=== PATIENT | male | born 1990 | race Caucasian/White ===

== ENCOUNTER 2020-01-06 15:11 | Emergency (ER) | payer BC ==
[2020-01-06 15:56] LABS: Basophils # (A) 0.1 k/uL (0-0.2); Basophils % (A) 1 %; Eosinophils # (A) 0.1 k/uL (0-0.7); Eosinophils % (A) 1 %; HCT 49.4 % (39.0-53.0); Lymphocytes # (A) 2.3 k/uL (1.0-4.8); Lymphocytes % (A) 20 %; MCH 29.1 pg (25.0-35.0); MCHC 34.3 g/dL (31.0-37.0); MCV 84.6 fL (80.0-100.0); Mean Platelet Volume 7.4; Monocytes # (A) 0.8 k/uL (0-1.0); Monocytes % (A) 7 %; Neutrophils # (A) 7.7 k/uL (1.3-7.7); Neutrophils % (A) 68 %; Platelet Count 295 k/uL (150-450); RBC 5.84 m/uL (4.30-5.90); RDW 13.4 % (11.5-15.5); WBC 11.2 k/uL (3.8-10.6)
[2020-01-06 16:06] LABS: ALT 97 U/L (4-49); AST 59 U/L (17-59); African American GFR (CKD) >90 (>60 ml/min/1.73 sqM); Albumin 5.1 g/dL (3.5-5.0); Alkaline Phosphatase 90 U/L (38-126); Anion Gap 13 mmol/L; Blood Urea Nitrogen 24 mg/dL (9-20); Calcium 9.8 mg/dL (8.4-10.2); Carbon Dioxide 22 mmol/L (22-30); Chloride 105 mmol/L (98-107); Glucose 95 mg/dL (74-99); Non-African American GFR(CKD) >90 (>60 ml/min/1.73 sqM); Potassium 4.6 mmol/L (3.5-5.1); Sodium 140 mmol/L (137-145); Total Bilirubin 0.6 mg/dL (0.2-1.3); Total Protein 8.7 g/dL (6.3-8.2)
[2020-01-06 16:08] LABS: Appearance,Urine Clear (Clear); Bilirubin,Urine Negative (Negative); Blood,Urine Negative (Negative); Color,Urine Yellow; Glucose,Urine (UA) Negative (Negative); Ketones,Urine Negative (Negative); Leukocyte Esterase,Urine Trace (Negative); Mucus,Urine Rare /hpf; Nitrite,Urine Negative (Negative); Protein,Urine Trace (Negative); RBC,Urine 1 /hpf (0-5); Specific Gravity,Urine 1.032 (1.001-1.035); Urobilinogen,Urine <2.0 mg/dL (<2.0); WBC,Urine 2 /hpf (0-5)
--- NOTE | 2020-01-06 16:29 | CT ---
EXAMINATION TYPE: CT abdomen pelvis w con DATE OF EXAM: 01/06/2020 COMPARISON: Non-. HISTORY: Right sided mid Abdominal pain without injury. Possible hernia or rectus sheath hematoma. CT DLP: 2786.8 mGycm, Automated Exposure Control for Dose Reduction was Utilized. CONTRAST: CT scan of the abdomen and pelvis is performed without oral but with IV Contrast, patient injected wi th 100 mL of Isovue 300. FINDINGS: LUNG BASES: No significant abnormality is appreciated. LIVER/GB: Liver is markedly hypodense consistent with diffuse fatty infiltration. Liver mildly enlarg ed with prominent right hepatic lobe. PANCREAS: No significant abnormality is seen. SPLEEN: No significant abnormality is seen. ADRENALS: No significant abnormality is seen. KIDNEYS: Symmetric cortical medullary uptake and excretion without hydronephrosis seen bilaterally. BOWEL: Suboptimal evaluation of bowel without enteric contrast. No suspicious small or large bowel di latation. Appendix within normal limits from posterior aspect at base of cecum in the right lower ronel drant. PROSTATE/SEMINAL VESICLES: Normal in size. Occasional calcified phleboliths bilaterally. LYMPH NODES: No greater than 1cm abdominal or pelvic lymph nodes are appreciated. OSSEOUS STRUCTURES: No significant abnormality is seen. OTHER: Tiny fat-containing left inguinal hernia. Moderate size left periumbilical hernia containing f at on axial image 65 just left and inferior to the umbilicus. Rectus sheath symmetric and felt within normal limits. IMPRESSION: Moderate-sized fat-containing periUmbilical hernia. No acute findings identified.
--- NOTE | 2020-01-06 16:50 | ED ---
Abdominal Pain HPI - General Chief Complaint: Abdominal Pain Stated Complaint: right side abdominal pain Time Seen by Provider: 01/06/20 15:27 Source: patient Mode of arrival: ambulatory Limitations: no limitations - History of Present Illness Initial Comments: 29-year-old male no severe past medical history presenting for right mid abdominal pain since she was on the toilet when he felt a sudden pop in his abdomen. He patient states it feels like it's when he strained a muscle as arm or leg in the past but however in his abdomen. Patient denies any use of anticoagulation therapy. Patient states he has a known umbilical hernia however is not in this area. Patient denies any constipation denies any melena or hematochezia he denies any nausea vomiting fevers patient denies any symptoms prior to the sudden onset. Patient has a chest pressure or shortness of breath patient denies a ripping tearing back pain. Patient has no other concerns he states the pain was initially intense however he states is tolerable now he states there is no significant pain. Patient denies dysuria urgency frequency hematuria or flank pain. Remaining review of systems is negative. - Related Data Allergies Allergy/AdvReac Type Severity Reaction Status Date / Time No Known Allergies Allergy Verified 01/06/20 15:18 Review of Systems ROS Statement: Those systems with pertinent positive or pertinent negative responses have been documented in the HPI. ROS Other: All systems not noted in ROS Statement are negative. Past Medical History Past Medical History: No Reported History History of Any Multi-Drug Resistant Organisms: None Reported Past Surgical History: No Surgical Hx Reported Past Psychological History: No Psychological Hx Reported Smoking Status: Never smoker Past Alcohol Use History: None Reported Past Drug Use History: None Reported General Exam - General Exam Comments Initial Comments: General: The patient is awake and alert, in no distress Eye: +3 mm pupils are equal, round and reactive to light, extra-ocular movements are intact. No nystagmus. There is normal conjunctiva bilaterally. No signs of icterus. Ears, nose, mouth and throat: There are moist mucous membranes and no oral lesions. Neck: The neck is supple, there is no tenderness or JVD. Cardiovascular: There is a regular rate and rhythm. No murmur, rub or gallop is appreciated. Respiratory: Lungs are clear to auscultation, respirations are non-labored, breath sounds are equal. No wheezes, stridor, rales, or rhonchi. Gastrointestinal: Soft, non-distended, abdomen is tender in the mid right side, no obvious hernia, some tension noted, increases with rotation of the abdomen. no tenderness of rLQ or McBurneys point. Remaining abdomen in RUQ, LUQ, epigastric nontender. Umbilical hernia reducible. Remaining abdomen is nontender and without masses or organomegaly noted. There is no rebound or guarding present. Musculoskeletal: Normal ROM, no tenderness. Strength 5/5. Sensation intact. Radial pulses equal bilaterally 2+. Neurological: A&O x 3. CN II-XII intact grossly, There are no obvious motor or sensory deficits. Coordination appears grossly intact. Speech is normal. Skin: Skin is warm and dry and no rashes or lesions are noted. Psychiatric: Cooperative, appropriate mood & affect, normal judgment. Limitations: no limitations Course Vital Signs 01/06/20 01/06/20 15:16 16:53 Temperature 97.5 F L 98.2 F Pulse Rate 108 H 90 Respiratory 19 18 Rate Blood Pressure 166/98 144/91 O2 Sat by Pulse 99 96 Oximetry Medical Decision Making - Medical Decision Making 29-year-old male presenting today for chief complaint of right-sided abdominal pain occurred suddenly was patient is having a normal formed BM, some straining. No evidence of right sided hernia. No appendicits signs. No rectus sheath hematoma. Patient states pain is not severe. Laboratory studies stable. Patient does not appears to have acute abdomen. Discussed results, patient at this time feels it may be a skilled skeletal as I feel this is included in my differential diagnosis. I discussed symptomatically treatment in the importance of strict return parameters for worsening symptoms patient verbalized understanding and patient was discharged appearing well after discussing case with Dr. Sales. - Lab Data Result diagrams: 01/06/20 15:46 01/06/20 15:46 Lab Results 01/06/20 01/06/20 01/06/20 Range/Units 15:19 15:46 15:46 WBC 11.2 H (3.8-10.6) k/uL RBC 5.84 (4.30-5.90) m/uL Hgb 17.0 (13.0-17.5) gm/dL Hct 49.4 (39.0-53.0) % MCV 84.6 (80.0-100.0) fL MCH 29.1 (25.0-35.0) pg MCHC 34.3 (31.0-37.0) g/dL RDW 13.4 (11.5-15.5) % Plt Count 295 (150-450) k/uL Neutrophils % 68 % Lymphocytes % 20 % Monocytes % 7 % Eosinophils % 1 % Basophils % 1 % Neutrophils # 7.7 (1.3-7.7) k/uL Lymphocytes # 2.3 (1.0-4.8) k/uL Monocytes # 0.8 (0-1.0) k/uL Eosinophils # 0.1 (0-0.7) k/uL Basophils # 0.1 (0-0.2) k/uL Sodium 140 (137-145) mmol/L Potassium 4.6 (3.5-5.1) mmol/L Chloride 105 (98-107) mmol/L Carbon Dioxide 22 (22-30) mmol/L Anion Gap 13 mmol/L BUN 24 H (9-20) mg/dL Creatinine 1.06 (0.66-1.25) mg/dL Est GFR (CKD-EPI)AfAm >90 (>60 ml/min/1.73 sqM) Est GFR (CKD-EPI)NonAf >90 (>60 ml/min/1.73 sqM) Glucose 95 (74-99) mg/dL Calcium 9.8 (8.4-10.2) mg/dL Total Bilirubin 0.6 (0.2-1.3) mg/dL AST 59 (17-59) U/L ALT 97 H (4-49) U/L Alkaline Phosphatase 90 (38-126) U/L Total Protein 8.7 H (6.3-8.2) g/dL Albumin 5.1 H (3.5-5.0) g/dL Lipase 177 (23-300) U/L Urine Color Yellow Urine Appearance Clear (Clear) Urine pH 6.0 (5.0-8.0) Ur Specific [place] 1.032 (1.001-1.035) Urine Protein Trace H (Negative) Urine Glucose (UA) Negative (Negative) Urine Ketones Negative (Negative) Urine Blood Negative (Negative) Urine Nitrite Negative (Negative) Urine Bilirubin Negative (Negative) Urine Urobilinogen <2.0 (<2.0) mg/dL Ur Leukocyte Esterase Trace H (Negative) Urine RBC 1 (0-5) /hpf Urine WBC 2 (0-5) /hpf Urine Mucus Rare H (None) /hpf Disposition Clinical Impression: Right sided abdominal pain, Abdominal wall strain, Periumbilical hernia Disposition: HOME SELF-CARE Condition: Good Instructions (If sedation given, give patient instructions): Abdominal Pain (ED) Additional Instructions: Please use medication as discussed. Please follow-up with family doctor in the next 2 days. Please return to emergency room if the symptoms increase or worsen or for any other concerns. Is patient prescribed a controlled substance at d/c from ED?: No Referrals: Sorin Meza MD [Primary Care Provider] - 1-2 days Time of Disposition: 16:50
[2020-01-06 16:55] VITALS: BP 144/91; PULSE 90; RESP 18; TEMP 98.2
== END 2020-01-06 17:05 | disposition home or self-care (01) ==
LOC: EC 15:11
DX: S39.011A Strain of muscle, fascia and tendon of abdomen, initial encounter (principal); K42.9 Umbilical hernia without obstruction or gangrene; X58.XXXA Exposure to other specified factors, initial encounter
CPT/HCPCS: 36415; 80053; 83690; 85025; 81001; 74177; 99284; Q9967

== ENCOUNTER 2021-10-16 16:08 | Emergency (ER) | payer BC ==
[2021-10-16] MEDS ORDERED: SODIUM CHLORIDE 0.9% 1,000 ML IV STA ×2 (16:35→16:58)
[2021-10-16 16:44] LABS: Basophils % (A) 0 %; Eosinophils % (A) 0 %; HGB 14.9 gm/dL (13.0-17.5); Lymphocytes # (A) 1.1 k/uL (1.0-4.8); Lymphocytes % (A) 19 %; MCH 29.1 pg (25.0-35.0); MCHC 34.7 g/dL (31.0-37.0); MCV 83.9 fL (80.0-100.0); Mean Platelet Volume 7.6; Monocytes # (A) 0.3 k/uL (0-1.0); Monocytes % (A) 5 %; Neutrophils # (A) 4.2 k/uL (1.3-7.7); Neutrophils % (A) 74 %; Platelet Count 227 k/uL (150-450); RBC 5.13 m/uL (4.30-5.90); WBC 5.7 k/uL (3.8-10.6)
[2021-10-16 16:55] LABS: Potassium 4.1 mmol/L (3.5-5.1); Sodium 137 mmol/L (137-145)
[2021-10-16 16:56] LABS: ALT 52 U/L (4-49); AST 55 U/L (17-59); African American GFR (CKD) >90 (>60 ml/min/1.73 sqM); Alkaline Phosphatase 66 U/L (38-126); Anion Gap 13 mmol/L; Blood Urea Nitrogen 12 mg/dL (9-20); Calcium 8.4 mg/dL (8.4-10.2); Carbon Dioxide 23 mmol/L (22-30); Chloride 101 mmol/L (98-107); Glucose 133 mg/dL (74-99); Non-African American GFR(CKD) >90 (>60 ml/min/1.73 sqM); Total Bilirubin 0.7 mg/dL (0.2-1.3); Total Protein 7.4 g/dL (6.3-8.2)
[2021-10-16] MEDS ORDERED: ALBUTEROL HFA INHALER INHALATION STA (16:58)
[2021-10-16] MEDS ORDERED: KETOROLAC 15 MG/ML 1 ML VIAL IVP STA (16:59)
--- NOTE | 2021-10-16 17:01 | ED ---
General Adult HPI - General Chief complaint: Shortness of Breath Stated complaint: covid symptoms Time Seen by Provider: 10/16/21 16:50 Source: patient, RN notes reviewed, old records reviewed Mode of arrival: ambulatory Limitations: no limitations - History of Present Illness Initial comments: 31-year-old male patient, alert and oriented 4, presents to the emergency room with a history of shortness of breath, fever and cough for 2 days. He has not been vaccinated against coronavirus. He denies any medical history. He states that the pain is worse with a cough and between his shoulder blades. He states it is 7 out 10. -: days(s) (2) Location: chest Radiation: back (Between shoulder blades) Severity scale (1-10): 7 Quality: sharp Consistency: intermittent Worsens with: other (Cough) Associated Symptoms: cough, fever/chills, shortness of breath Treatments Prior to Arrival: none - Related Data Home Medications Medication Instructions Recorded Confirmed icosapent ethyL [Icosapent Ethyl] 2 gm PO PC-BID 10/16/21 10/16/21 Previous Rx's Medication Instructions Recorded Albuterol Inhaler [Ventolin Hfa 2 puff INHALATION Q4H PRN #8 gm 10/16/21 Inhaler] Allergies Allergy/AdvReac Type Severity Reaction Status Date / Time No Known Allergies Allergy Verified 10/16/21 20:04 Review of Systems ROS Statement: Those systems with pertinent positive or pertinent negative responses have been documented in the HPI. ROS Other: All systems not noted in ROS Statement are negative. Past Medical History Past Medical History: No Reported History History of Any Multi-Drug Resistant Organisms: None Reported Past Surgical History: No Surgical Hx Reported Additional Past Surgical History / Comment(s): hernia umbilical x 2 Past Psychological History: No Psychological Hx Reported Smoking Status: Never smoker Past Alcohol Use History: None Reported Past Drug Use History: None Reported General Exam Limitations: no limitations General appearance: alert, in distress (Dyspneic with exertion) Head exam: Present: atraumatic, normocephalic, normal inspection Eye exam: Present: normal appearance, EOMI. Absent: scleral icterus, conjunctival injection, periorbital swelling ENT exam: Present: normal exam, normal oropharynx, mucous membranes dry Neck exam: Present: normal inspection, full ROM. Absent: tenderness, meningismus, lymphadenopathy, thyromegaly Respiratory exam: Present: decreased breath sounds (Diminished throughout. poor inspiratory effort). Absent: respiratory distress, wheezes, rales, rhonchi, stridor, chest wall tenderness, accessory muscle use Cardiovascular Exam: Present: tachycardia GI/Abdominal exam: Present: soft, normal bowel sounds. Absent: distended, tenderness, guarding, rebound, rigid Extremities exam: Present: normal inspection, full ROM, normal capillary refill. Absent: tenderness, pedal edema, joint swelling, calf tenderness Back exam: Present: normal inspection, full ROM. Absent: tenderness, CVA ten derness (R), CVA tenderness (L), rash noted Neurological exam: Present: alert, oriented X3 Psychiatric exam: Present: normal affect, normal mood Skin exam: Present: warm, intact, normal color, diaphoretic. Absent: cyanosis Course Vital Signs 10/16/21 10/16/21 10/16/21 16:11 16:14 17:00 Temperature 101.0 F H Pulse Rate 116 H 114 H 110 H Respiratory 22 18 16 Rate Blood Pressure 134/94 134/94 133/92 O2 Sat by Pulse 90 L 95 98 Oximetry 10/16/21 10/16/21 20:23 20:25 Temperature 98.2 F Pulse Rate 100 Respiratory 20 Rate Blood Pressure 151/80 O2 Sat by Pulse 94 L Oximetry EKG Findings - EKG Results: EKG: sinus rhythm (Ventricular rate of 112, UT interval 0.146, QRS 0.84, QTC 0.469) EKG shows: tachycardia Medical Decision Making - Medical Decision Making 31-year-old male patient presents to the emergency room with shortness of breath, fever and cough for 2 days. He has not been vaccinated against coronavirus. He denies any medical history. He is covid positive. He states he feels much better after the breathing treatment. Oxygen saturation is 98% on room air. He tolerated an antibody infusion without any difficulty. He'll be discharged home to follow up with his primary care doctor as needed. Return to the emergency room with any new or worsening symptoms. Self quarantine for 10 days of symptom onset and 24 hours without a fever. He was also prescribed an albuterol inhaler as needed. Case discussed with Dr. finney. - Lab Data Result diagrams: 10/16/21 16:30 10/16/21 16:30 Lab Results 10/16/21 10/16/21 10/16/21 Range/Units 16:30 16:30 16:30 WBC 5.7 (3.8-10.6) k/uL RBC 5.13 (4.30-5.90) m/uL Hgb 14.9 (13.0-17.5) gm/dL Hct 43.0 (39.0-53.0) % MCV 83.9 (80.0-100.0) fL MCH 29.1 (25.0-35.0) pg MCHC 34.7 (31.0-37.0) g/dL RDW 14.0 (11.5-15.5) % Plt Count 227 (150-450) k/uL MPV 7.6 Neutrophils % 74 % Lymphocytes % 19 % Monocytes % 5 % Eosinophils % 0 % Basophils % 0 % Neutrophils # 4.2 (1.3-7.7) k/uL Lymphocytes # 1.1 (1.0-4.8) k/uL Monocytes # 0.3 (0-1.0) k/uL Eosinophils # 0.0 (0-0.7) k/uL Basophils # 0.0 (0-0.2) k/uL PT (9.0-12.0) sec INR (<1.2) APTT (22.0-30.0) sec D-Dimer (<0.60) mg/L FEU Sodium 137 (137-145) mmol/L Potassium 4.1 (3.5-5.1) mmol/L Chloride 101 (98-107) mmol/L Carbon Dioxide 23 (22-30) mmol/L Anion Gap 13 mmol/L BUN 12 (9-20) mg/dL Creatinine 1.04 (0.66-1.25) mg/dL Est GFR (CKD-EPI)AfAm >90 (>60 ml/min/1.73 sqM) Est GFR (CKD-EPI)NonAf >90 (>60 ml/min/1.73 sqM) Glucose 133 H (74-99) mg/dL Calcium 8.4 (8.4-10.2) mg/dL Magnesium (1.6-2.3) mg/dL Total Bilirubin 0.7 (0.2-1.3) mg/dL AST 55 (17-59) U/L ALT 52 H (4-49) U/L Alkaline Phosphatase 66 (38-126) U/L Troponin I (0.000-0.034) ng/mL Total Protein 7.4 (6.3-8.2) g/dL Albumin 4.0 (3.5-5.0) g/dL Coronavirus (PCR) Detected A (Not Detectd) 10/16/21 10/16/21 10/16/21 Range/Units 17:00 17:00 17:00 WBC (3.8-10.6) k/uL RBC (4.30-5.90) m/uL Hgb (13.0-17.5) gm/dL Hct (39.0-53.0) % MCV (80.0-100.0) fL MCH (25.0-35.0) pg MCHC (31.0-37.0) g/dL RDW (11.5-15.5) % Plt Count (150-450) k/uL MPV Neutrophils % % Lymphocytes % % Monocytes % % Eosinophils % % Basophils % % Neutrophils # (1.3-7.7) k/uL Lymphocytes # (1.0-4.8) k/uL Monocytes # (0-1.0) k/uL Eosinophils # (0-0.7) k/uL Basophils # (0-0.2) k/uL PT 10.9 (9.0-12.0) sec INR 1.0 (<1.2) APTT 26.8 (22.0-30.0) sec D-Dimer 1.13 H (<0.60) mg/L FEU Sodium (137-145) mmol/L Potassium (3.5-5.1) mmol/L Chloride (98-107) mmol/L Carbon Dioxide (22-30) mmol/L Anion Gap mmol/L BUN (9-20) mg/dL Creatinine (0.66-1.25) mg/dL Est GFR (CKD-EPI)AfAm (>60 ml/min/1.73 sqM) Est GFR (CKD-EPI)NonAf (>60 ml/min/1.73 sqM) Glucose (74-99) mg/dL Calcium (8.4-10.2) mg/dL Magnesium 1.9 (1.6-2.3) mg/dL Total Bilirubin (0.2-1.3) mg/dL AST (17-59) U/L ALT (4-49) U/L Alkaline Phosphatase (38-126) U/L Troponin I <0.012 (0.000-0.034) ng/mL Total Protein (6.3-8.2) g/dL Albumin (3.5-5.0) g/dL Coronavirus (PCR) (Not Detectd) Disposition Clinical Impression: COVID-19 Disposition: HOME SELF-CARE Condition: Good Instructions (If sedation given, give patient instructions): Coronavirus Disease 2019 (COVID-19) Additional Instructions: Use albuterol inhaler every 4 hours, 2 puffs as needed for difficulty breathing. Continue Tylenol and/or Motrin for any fevers or body aches. Take vitamin C, vitamin D and zinc and increase your fluid intake. Self quarantine for 10 days from symptom onset and 24 hours without fever. Return to the emergency room with any new or worsening symptoms. Prescriptions: Albuterol Inhaler [Ventolin Hfa Inhaler] 2 puff INHALATION Q4H PRN #8 gm PRN Reason: Dyspnea Is patient prescribed a controlled substance at d/c from ED?: No Referrals: Sorin Meza MD [Primary Care Provider] - 1-2 days Time of Disposition: 21:04
[2021-10-16] MEDS ORDERED: ACETAMINOPHEN TAB 325 MG TAB PO STA (17:03)
[2021-10-16 17:19] LABS: Partial Thromboplastin Time 26.8 sec (22.0-30.0); Prothrombin Time 10.9 sec (9.0-12.0)
--- NOTE | 2021-10-16 18:34 | CT ---
EXAMINATION TYPE: CT angio chest DATE OF EXAM: 10/16/2021 6:17 PM COMPARISON: None available HISTORY: Shortness of breath, covid. CT DLP: 921.7 mGycm Automated exposure control for dose reduction was used. CONTRAST: CTA scan of the thorax is performed with IV Contrast, patient injected with 100ml mL of Isovue 370, p ulmonary embolism protocol. MIP images are created and reviewed. FINDINGS: LUNGS: There are bilateral diffuse moderate patchy ground glass opacities. There is no pleural effusi on or pneumothorax seen. The tracheobronchial tree is patent. MEDIASTINUM: There is satisfactory enhancement of the pulmonary artery and its branches, there is no CT evidence for pulmonary embolism. There are scattered multiple borderline to mildly enlarged media stinal lymph nodes. No pericardial effusion is seen. OTHER: Diffuse hepatic steatosis. No additional significant abnormality is seen. IMPRESSION: FINDINGS COMPATIBLE WITH ATYPICAL PNEUMONIA INCLUDING COVID. NO ACUTE PE.
[2021-10-16] MEDS ORDERED: BAMLANIVIMAB (EUA) 700 MG, ETESEVIMAB (EUA) 1,400 MG in SODIUM CHLORIDE 0.9% 50 ML IVPB ONE (19:15)
[2021-10-16] MEDS ORDERED: SODIUM CHLORIDE 0.9% 50 ML IVPB ONE (19:15)
[2021-10-16 20:25] VITALS: RESP 20
[2021-10-16 22:04] VITALS: BP 147/78; PULSE 62; TEMP 98.4
== END 2021-10-16 22:03 | disposition home or self-care (01) ==
LOC: EC 16:08
DX: U07.1 COVID-19 (principal)
CPT/HCPCS: 36415; 94640; 93005; 85379; 80053; 83735; 84484; 85025; 85610; 85730; 87635; 71275; 99285; 96374; 96361; J1885; Q9967; J3490

== ENCOUNTER 2022-12-02 18:15 | Emergency (ER) | payer OTHER, BC ==
[2022-12-02 18:23] VITALS: TEMP 98.1
[2022-12-02] MEDS ORDERED: fentaNYL (PF) 50 MCG/ML 2 ML AMP IVP STA (18:37)
[2022-12-02] MEDS ORDERED: SODIUM CHLORIDE 0.9% 500 ML 500 ML IV STA (18:37)
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
[2022-12-02 19:27] LABS: Basophils # (A) 0.1 k/uL (0-0.2); Basophils % (A) 1 %; Eosinophils # (A) 0.1 k/uL (0-0.7); Eosinophils % (A) 1 %; HGB 15.3 gm/dL (13.0-17.5); Lymphocytes % (A) 26 %; MCH 28.4 pg (25.0-35.0); MCHC 34.7 g/dL (31.0-37.0); MCV 81.8 fL (80.0-100.0); Monocytes # (A) 0.8 k/uL (0-1.0); Monocytes % (A) 7 %; Neutrophils # (A) 7.1 k/uL (1.3-7.7); Neutrophils % (A) 63 %; Platelet Count 278 k/uL (150-450); RBC 5.37 m/uL (4.30-5.90); RDW 13.4 % (11.5-15.5); WBC 11.3 k/uL (3.8-10.6)
[2022-12-02 19:33] LABS: Partial Thromboplastin Time 26.2 sec (22.0-30.0); Prothrombin Time 10.3 sec (9.0-12.0)
[2022-12-02 19:37] LABS: Albumin 4.5 g/dL (3.5-5.0); Calcium 9.1 mg/dL (8.4-10.2); Potassium 4.3 mmol/L (3.5-5.1); Total Bilirubin 0.7 mg/dL (0.2-1.3); Total Protein 7.6 g/dL (6.3-8.2)
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
[2022-12-02 21:15] VITALS: BP 175/106; PULSE 75; RESP 16
== END 2022-12-02 21:15 | disposition home or self-care (01) ==
LOC: EC 18:15
DX: S30.1XXA Contusion of abdominal wall, initial encounter (principal); V47.5XXA Car driver injured in collision with fixed or stationary object in traffic accident, initial encounter; Y92.410 Unspecified street and highway as the place of occurrence of the external cause
CPT/HCPCS: 36415; 93005; 80053; 84484; 85025; 85610; 85730; 71260; 74177; 99284; 96374; J3010; Q9967

== ENCOUNTER 2023-09-26 13:23 | Inpatient (IN) | payer BC ==
[2023-09-26] MEDS ORDERED: ACETAMINOPHEN TAB 325 MG TAB PO STA (14:12)
[2023-09-26] MEDS ORDERED: IBUPROFEN 800 MG TAB PO STA (14:12)
[2023-09-26] MEDS ORDERED: methylPREDNISolone SOD SUCCI 125 MG/2 ML VIAL IV STA (14:13)
[2023-09-26] MEDS ORDERED: MORPHINE SULFATE 4 MG/ML SYRINGE IM STA (14:39)
[2023-09-26 14:54] LABS: Basophils % (A) 0 %; Eosinophils # (A) 0.1 k/uL (0-0.7); Eosinophils % (A) 1 %; HCT 44.5 % (39.0-53.0); HGB 16.1 gm/dL (13.0-17.5); Lymphocytes % (A) 5 %; MCH 29.9 pg (25.0-35.0); MCHC 36.2 g/dL (31.0-37.0); MCV 82.5 fL (80.0-100.0); Mean Platelet Volume 7.3; Monocytes % (A) 4 %; Neutrophils # (A) 19.7 k/uL (1.3-7.7); Neutrophils % (A) 90 %; Platelet Count 247 k/uL (150-450); RBC 5.39 m/uL (4.30-5.90); RDW 13.4 % (11.5-15.5)
[2023-09-26 15:05] LABS: ALT 61 U/L (4-49); AST 42 U/L (17-59); African American GFR (CKD) >90 (>60 ml/min/1.73 sqM); Albumin 4.9 g/dL (3.5-5.0); Alkaline Phosphatase 78 U/L (38-126); Anion Gap 17 mmol/L; Blood Urea Nitrogen 16 mg/dL (9-20); Calcium 9.5 mg/dL (8.4-10.2); Carbon Dioxide 19 mmol/L (22-30); Chloride 102 mmol/L (98-107); Glucose 141 mg/dL (74-99); Non-African American GFR(CKD) >90 (>60 ml/min/1.73 sqM); Potassium 3.8 mmol/L (3.5-5.1); Sodium 138 mmol/L (137-145); Total Bilirubin 0.8 mg/dL (0.2-1.3); Total Protein 8.1 g/dL (6.3-8.2)
--- NOTE | 2023-09-26 15:12 | XR ---
EXAMINATION TYPE: XR Hip Bilateral Complete DATE OF EXAM: 09/26/2023 CLINICAL HISTORY: pain TECHNIQUE: AP and frogleg views of the bilateral hips are obtained. COMPARISON: None. FINDINGS: There is no acute fracture/dislocation evident. The joint space appears within normal li mits. The overlying soft tissue appears unremarkable. IMPRESSION: 1. There is no acute fracture or dislocation. ICD 10 NO FRACTURE, INITIAL EVALUATION
--- NOTE | 2023-09-26 15:25 | ED ---
General Adult HPI - General Source: patient, RN notes reviewed Mode of arrival: ambulatory Limitations: no limitations <Tomeka Hernandez - Last Filed: 09/26/23 17:07> <Angelo Lin - Last Filed: 09/26/23 18:19> - General Chief complaint: Extremity Problem,Nontraumatic Stated complaint: R Leg/Foot pain Time Seen by Provider: 09/26/23 14:01 - History of Present Illness Initial comments: 33-year-old male with no significant past medical history presents the emergency department with a chief complaint of right leg pain. Patient reports right leg pain that started this up and radiates all the way down. He reports sudden onset. The pain as sharp and constant. This is not worse with movement. Febrile. Patient reports that he had cellulitis in the past however this feels different. Patient denies any trauma or injury. Denies recent travel. (Tomeka Hernandez) - Related Data Home Medications Medication Instructions Recorded Confirmed No Known Home Medications 09/26/23 09/26/23 Allergies Allergy/AdvReac Type Severity Reaction Status Date / Time No Known Allergies Allergy Verified 09/26/23 17:17 Review of Systems ROS Other: All systems not noted in ROS Statement are negative. <Tomeka Hernandez - Last Filed: 09/26/23 17:07> ROS Other: All systems not noted in ROS Statement are negative. <Angelo Lin - Last Filed: 09/26/23 18:19> ROS Statement: Those systems with pertinent positive or pertinent negative responses have been documented in the HPI. Past Medical History Past Medical History: No Reported History History of Any Multi-Drug Resistant Organisms: None Reported Past Surgical History: No Surgical Hx Reported Additional Past Surgical History / Comment(s): hernia umbilical x 2 Past Psychological History: No Psychological Hx Reported Smoking Status: Never smoker Past Alcohol Use History: None Reported Past Drug Use History: None Reported <Tomeka Hernandez - Last Filed: 09/26/23 17:07> General Exam Limitations: no limitations <Tomeka Hernandez - Last Filed: 09/26/23 17:07> - General Exam Comments Initial Comments: General: Alert, in no acute distress Head: atraumatic normocephalic. Eyes PERRL, EOMI intact, mucous membranes moist Respiratory: Lungs clear to auscultation bilaterally Cardiovascular: Heart rate tachycardic Abdominal: Soft without guarding or rebound Extremities: Normal inspection with full range of motion and normal capillary refill, 2+ pieces PT pulses bilaterally. Small area of erythema that is warm to distal tibia-fibula area Neuroogic: alert and oriented 3, CN II-XII intact, able to ambulate with steady gait Skin: warm dry and intact with normal color (Tomeka Hernandez) Course <Tomeka Hernandez - Last Filed: 09/26/23 17:07> Vital Signs 09/26/23 09/26/23 09/26/23 13:26 14:48 17:03 Temperature 100.4 F H 98.1 F Pulse Rate 119 H 125 H 111 H Respiratory 20 16 16 Rate Blood Pressure 190/90 118/95 180/113 O2 Sat by Pulse 100 99 97 Oximetry - Reevaluation(s) Reevaluation #1: 09/26/23 15:23 , at bedside to discuss plan of care (Tomeka Hernandez) Reevaluation #2: 09/26/23 17:[address] Baig was in the emergency department agrees and accepts the patient for further admission (Tomeka Hernandez) Medical Decision Making - Lab Data Result diagrams: 09/26/23 14:18 09/26/23 14:18 <Tomeka Hernandez - Last Filed: 09/26/23 17:07> - Lab Data Result diagrams: 09/26/23 14:18 09/26/23 14:18 <Angelo Lin - Last Filed: 09/26/23 18:19> - Medical Decision Making Was pt. sent in by a medical professional or institution (, PA, BRINELL TESTER, urgent care, hospital, or skilled nursing...) When possible be specific @ -[No] Did you speak to anyone other than the patient for history (EMS, parent, family, police, friend...)? What history was obtained from this source @ -[No] Did you review nursing and triage notes (agree or disagree)? Why? @ -[I reviewed and agree with nursing and triage notes] Were old charts reviewed (outside hosp., previous admission, EMS record, old EKG, old radiological studies, urgent care reports/EKG's, skilled nursing records)? Report findings @ -[No old charts were reviewed] Differential Diagnosis (chest pain, altered mental status, abdominal pain women, abdominal pain men, vaginal bleeding, weakness, fever, dyspnea, syncope, headache, dizziness, GI bleed, back pain, seizure, CVA, palpatations, mental health, musculoskeletal)? @ -[not applicable] EKG interpreted by me (3pts min.). @ -[As above] X-rays interpreted by me (1pt min.). @ -[None done] CT interpreted by me (1pt min.). @ -yes U/S interpreted by me (1pt. min.). @ -Yes What testing was considered but not performed or refused? (CT, X-rays, U/S, labs)? Why? @ -[None] What meds were considered but not given or refused? Why? @ -[None] Did you discuss the management of the patient with other professionals (professionals i.e. , PA, BRINELL TESTER, lab, RT, psych nurse, social service worker, job press feeder, teacher, wildlife conservation officer, field nurse case manager)? Give summary @ -[No] Was smoking cessation discussed for >3mins.? @ -[No] Was critical care preformed (if so, how long)? @ -[No] Were there social determinants of health that impacted care today? How? (Homelessness, low income, unemployed, alcoholism, drug addiction, transportation, low edu. Level, literacy, decrease access to med. care, [facility], rehab)? @ -[No] Was there de-escalation of care discussed even if they declined (Discuss DNR or withdrawal of care, Hospice)? DNR status @ -[No] What co-morbidities impacted this encounter? (DM, HTN, Smoking, COPD, CAD, Cancer, CVA, ARF, Chemo, Hep., AIDS, mental health diagnosis, sleep apnea, morbid obesity)? @ -[None] Was patient admitted / discharged? Hospital course, mention meds given and route, prescriptions, significant lab abnormalities, going to OR and other pertinent info. @ -Admission. This is a 33-year-old male with no significant past medical history who presents the emergency department with a chief complaint of right hip pain. Patient had a thorough history and physical exam. Right lower extremity with 2+ DP/PT pulses. Limited range of motion secondary to pain. Patient is febrile. Patient appears to be in pain out of proportion to the exam Patient was given morphine financial, Tylenol and Motrin with mild symptomatic improvement. Patient's laboratory studies reveal WBCs 22.0 sodium 138, potassium 2.8 BUN Khari, creatinine 1.06 lactic acid 3.1 CK 249. Patient had x-rays and CT of his lumbar and sacral spine which were unremarkable reveals no evidence of epidural abscess. Case is discussed with Dr. Jerson rubio who is currently in the ED. He states that the patient for admission. Patient started on Vancomycin. Case is discussed with DANN Renee who agrees with plan of care Undiagnosed new problem with uncertain prognosis? @ -[No] Drug Therapy requiring intensive monitoring for toxicity (Heparin, Nitro, Insulin, Cardizem)? @ -[No] Were any procedures done? @ -[No] Diagnosis/symptom? @ -Hip Pain - Cellulitis - Leukocytosis -Sepsis Acute, or Chronic, or Acute on Chronic? @ -Acute Uncomplicated (without systemic symptoms) or Complicated (systemic symptoms)? @ -Complicated Side effects of treatment? @ -[No] Exacerbation, Progression, or Severe Exacerbation? @ -[No] Poses a threat to life or bodily function? How? (Chest pain, [place], [place], pneumonia, PE, COPD, DKA, ARF, appy, cholecystitis, CVA, Diverticulitis, Homicidal, Suicidal, threat to staff... and all critical care pts) @ -Yes, Cellulitis (Tomeka Hernandez) Patient was seen and evaluated myself in the ED and I provided supervision to ED BURT Eckert. Patient's exam reveals tender erythema along his right lower tibial region consistent with cellulitis. Patient is also febrile, with leukocytosis and meets criteria for sepsis. Patient has been treated with IV vancomycin in the ED and given IV fluids. Patient's right lower extremity venous duplex ultrasound is negative for DVT. Patient's x-rays are negative. Patient's CT lumbar spine with IV contrast is negative for any evidence of epidural abscess. Patient's UA is also unremarkable. I suspect that the patient's fever/leukocytosis/symptoms are secondary to right lower extremity cellulitis with sepsis. Patient has been admitted to the hospital. (Angelo Lin) - Lab Data Lab Results 09/26/23 09/26/23 09/26/23 Range/Units 14:18 14:18 15:23 WBC 22.0 H (3.8-10.6) k/uL RBC 5.39 (4.30-5.90) m/uL Hgb 16.1 (13.0-17.5) gm/dL Hct 44.5 (39.0-53.0) % MCV 82.5 (80.0-100.0) fL MCH 29.9 (25.0-35.0) pg MCHC 36.2 (31.0-37.0) g/dL RDW 13.4 (11.5-15.5) % Plt Count 247 (150-450) k/uL MPV 7.3 Neutrophils % 90 % Lymphocytes % 5 % Monocytes % 4 % Eosinophils % 1 % Basophils % 0 % Neutrophils # 19.7 H (1.3-7.7) k/uL Lymphocytes # 1.0 (1.0-4.8) k/uL Monocytes # 1.0 (0-1.0) k/uL Eosinophils # 0.1 (0-0.7) k/uL Basophils # 0.0 (0-0.2) k/uL Sodium 138 (137-145) mmol/L Potassium 3.8 (3.5-5.1) mmol/L Chloride 102 (98-107) mmol/L Carbon Dioxide 19 L (22-30) mmol/L Anion Gap 17 mmol/L BUN 16 (9-20) mg/dL Creatinine 1.06 (0.66-1.25) mg/dL Est GFR (CKD-EPI)AfAm >90 (>60 ml/min/1.73 sqM) Est GFR (CKD-EPI)NonAf >90 (>60 ml/min/1.73 sqM) Glucose 141 H (74-99) mg/dL Plasma Lactic Acid Hiram 3.1 H* (0.7-2.0) mmol/L Calcium 9.5 (8.4-10.2) mg/dL Total Bilirubin 0.8 (0.2-1.3) mg/dL AST 42 (17-59) U/L ALT 61 H (4-49) U/L Alkaline Phosphatase 78 (38-126) U/L Creatine Kinase (55-170) U/L Total Protein 8.1 (6.3-8.2) g/dL Albumin 4.9 (3.5-5.0) g/dL Urine Color Urine Appearance (Clear) Urine pH (5.0-8.0) Ur Specific [place] (1.001-1.035) Urine Protein (Negative) Urine Glucose (UA) (Negative) Urine Ketones (Negative) Urine Blood (Negative) Urine Nitrite (Negative) Urine Bilirubin (Negative) Urine Urobilinogen (<2.0) mg/dL Ur Leukocyte Esterase (Negative) 09/26/23 09/26/23 Range/Units 15:23 15:23 WBC (3.8-10.6) k/uL RBC (4.30-5.90) m/uL Hgb (13.0-17.5) gm/dL Hct (39.0-53.0) % MCV (80.0-100.0) fL MCH (25.0-35.0) pg MCHC (31.0-37.0) g/dL RDW (11.5-15.5) % Plt Count (150-450) k/uL MPV Neutrophils % % Lymphocytes % % Monocytes % % Eosinophils % % Basophils % % Neutrophils # (1.3-7.7) k/uL Lymphocytes # (1.0-4.8) k/uL Monocytes # (0-1.0) k/uL Eosinophils # (0-0.7) k/uL Basophils # (0-0.2) k/uL Sodium (137-145) mmol/L Potassium (3.5-5.1) mmol/L Chloride (98-107) mmol/L Carbon Dioxide (22-30) mmol/L Anion Gap mmol/L BUN (9-20) mg/dL Creatinine (0.66-1.25) mg/dL Est GFR (CKD-EPI)AfAm (>60 ml/min/1.73 sqM) Est GFR (CKD-EPI)NonAf (>60 ml/min/1.73 sqM) Glucose (74-99) mg/dL Plasma Lactic Acid Hiram (0.7-2.0) mmol/L Calcium (8.4-10.2) mg/dL Total Bilirubin (0.2-1.3) mg/dL AST (17-59) U/L ALT (4-49) U/L Alkaline Phosphatase (38-126) U/L Creatine Kinase 249 H (55-170) U/L Total Protein (6.3-8.2) g/dL Albumin (3.5-5.0) g/dL Urine Color Colorless Urine Appearance Clear (Clear) Urine pH 7.0 (5.0-8.0) Ur Specific [place] 1.011 (1.001-1.035) Urine Protein Negative (Negative) Urine Glucose (UA) Negative (Negative) Urine Ketones Negative (Negative) Urine Blood Negative (Negative) Urine Nitrite Negative (Negative) Urine Bilirubin Negative (Negative) Urine Urobilinogen <2.0 (<2.0) mg/dL Ur Leukocyte Esterase Negative (Negative) - Radiology Data Right lower extremity venous duplex ultrasound: No evidence of DVT in the right lower extremity. (Angelo Lin) Disposition Is patient prescribed a controlled substance at d/c from ED?: No Time of Disposition: 17:14 <Tomeka Hernandez - Last Filed: 09/26/23 17:07> Is patient prescribed a controlled substance at d/c from ED?: No <Angelo Lin - Last Filed: 09/26/23 18:19> Clinical Impression: Sepsis, Cellulitis, Right hip pain, Leukocytosis Disposition: ADMITTED IP TO THIS HOSP Condition: Fair
--- NOTE | 2023-09-26 15:59 | XR ---
EXAMINATION TYPE: XR tibia fibula RT DATE OF EXAM: 09/26/2023 CLINICAL HISTORY: pain TECHNIQUE: AP and lateral images of the right tibia and fibula are obtained. COMPARISON: None. FINDINGS: There is no acute fracture/dislocation evident. Periosteal thickening proximal right fibul ar diaphysis laterally could reflect nonacute fracture. Correlate clinically. The joint spaces appea r within normal limits. The overlying soft tissue appears unremarkable. IMPRESSION: There is no acute fracture or dislocation seen. Periosteal thickening proximal right fibular diaphysi s laterally could reflect nonacute fracture. Correlate clinically. ICD 10 NO FRACTURE, INITIAL EVALUATION
--- NOTE | 2023-09-26 16:13 | CT ---
EXAMINATION TYPE: CT lumbar spine w con DATE OF EXAM: 09/26/2023 COMPARISON: none HISTORY: r/out epidural abscess CT DLP: 2515.4 mGycm Automated exposure control for dose reduction was used. CONTRAST: CT scan of the lumbar is performed with IV Contrast, patient injected with 100ml mL of Isovue 300. Enhanced CT of the lumbar spine was performed. Bone and soft tissue window settings are submitted as well as coronal and sagittal reconstructions. L1-L2: Normal disc space height. No disc herniation protrusion or central stenosis. No facet joint arthropathy. No evidence for foraminal encroachment. L2-L3: Normal disc space height. No disc herniation protrusion or central stenosis. No facet joint arthropathy. No evidence for foraminal encroachment. L3-L4: Normal disc space height. No disc herniation protrusion or central stenosis. No facet joint arthropathy. No evidence for foraminal encroachment. L4-L5: Normal disc space height. No disc herniation protrusion or central stenosis. No facet joint arthropathy. No evidence for foraminal encroachment. L5-S1: Normal disc space height. No disc herniation protrusion or central stenosis. No facet joint arthropathy. No evidence for foraminal encroachment. IMPRESSION: No enhancing epidural abscess or paraspinal mass. If symptoms persist MRI is recommended. Overall exa mination of the lumbar spine is felt to be within normal limits for the patient's age group.
[2023-09-26] MEDS ORDERED: SODIUM CHLORIDE 0.9% 1,000 ML IV ONE ×2 (16:26→17:47)
[2023-09-26] MEDS ORDERED: VANCOMYCIN IV PER PHARMACY 1 EACH MISC MISCELLANE STA (16:28)
[2023-09-26] MEDS ORDERED: VANCOMYCIN 2,000 MG in SODIUM CHLORIDE 0.9% 500 ML 500 ML IVPB STA (16:31)
[2023-09-26] MEDS ORDERED: MORPHINE SULFATE 4 MG/ML SYRINGE IVP STA (17:01)
[2023-09-26] MEDS ORDERED: NALOXONE 0.4 MG/ML 1 ML VIAL IV PRN (17:14)
[2023-09-26] MEDS ORDERED: ACETAMINOPHEN TAB 325 MG TAB PO PRN (17:14)
--- NOTE | 2023-09-26 17:26 | US ---
EXAMINATION TYPE: US venous doppler duplex LE RT DATE OF EXAM: 09/26/2023 4:54 PM COMPARISON: NONE CLINICAL INDICATION: Male, 33 years old with history of r/out DVT; Right leg pain SIDE PERFORMED: Right TECHNIQUE: The lower extremity deep venous system is examined utilizing real time linear array sonog elodia with graded compression, doppler sonography and color-flow sonography. VESSELS IMAGED: Common Femoral Vein Deep Femoral Vein Greater Saphenous Vein * Femoral Vein Popliteal Vein Small Saphenous Vein * Proximal Calf Veins (* superficial vessels) Right Leg: Appears negative for DVT IMPRESSION: No evidence of DVT in the right lower extremity.
[2023-09-26 17:29] LABS: Appearance,Urine Clear (Clear); Bilirubin,Urine Negative (Negative); Blood,Urine Negative (Negative); Color,Urine Colorless; Glucose,Urine (UA) Negative (Negative); Ketones,Urine Negative (Negative); Leukocyte Esterase,Urine Negative (Negative); Nitrite,Urine Negative (Negative); Protein,Urine Negative (Negative); Specific Gravity,Urine 1.011 (1.001-1.035); Urobilinogen,Urine <2.0 mg/dL (<2.0)
[2023-09-26] MEDS: SODIUM CHLORIDE 0.9% 1,000 ML IV SCH (17:45)
--- NOTE | 2023-09-26 17:53 | P.HPIM ---
History of Present Illness H&P Date: 09/26/23 Patient is a 33-year-old male with history of no significant past smoking history presenting with right leg pain. He claims that he woke up this morning with pain in his right richter. He noted that he was edematous and erythematous. He was also having nausea and vomiting and chills. He tried to cold shower which did not alleviate his pain. He then try to take a nap, and pain pe rsisted. Now the pain is radiating up to his back. He claims that the pain shooting throughout his body. He had a bout of cellulitis a few years ago and improved with antibiotics. He denies any chest pain, shortness of breath, abdominal pain, urinary or bowel complaints. He denies any recent trauma or tick bite or animal bites. Denies any recent travel history. In the ER, temperature was 100.4, pulse 119, respiratory rate 20, blood pressure 190/90, saturating 100% on room air. WBC 22, bicarb 19, lactate 3.1, creatinine 1.06, glucose 141, ALT 61, CK 249. Lumbar CT did not show any epidural abscess or paraspinal mass. Right tibia and fibula showed no acute fracture or dislocation, periosteal thickening of proximal right fibular diaphysis bilaterally could represent nonacute fracture. Hip x-ray did not show any factors. Patient started on IV vancomycin. Patient admitted for cellulitis and sepsis. Pertinent positives and negatives as discussed in HPI, a complete review of sy stems was performed and all other systems are negative. Patient seen and examined at bedside. Vital signs reviewed General: nontoxic, no distress, appears at stated age Derm: warm, dry, right anterior richter erythematous and tender to palpation Head: atraumatic, normocephalic, symmetric Eyes: EOMI, no lid lag, anicteric sclera, pupils equal round reactive to light ENT: Nose and ears atraumatic Neck: No thyromegaly, supple Mouth: no lip lesion, mucus membranes moist Cardiovascular: S1S2 reg, no murmur, no edema Lungs: clear to auscultation bilateral, no rhonchi, no rales, no wheeze, no accessory muscle use Abdominal: soft, nontender to palpation, no guarding, no appreciable organomegaly Ext: no gross muscle atrophy, muscle strength muscle strength 5 out of 5 in all 4 extremities, no contractures Neuro: CN II-XII grossly intact Psych: Alert, oriented, appropriate affect Assessment/Plan: Severe sepsis secondary to lower extremity cellulitis Lactic acidosis High anion gap metabolic acidosis Hypertension, likely from pain -Blood cultures pending -Lower extremity venous Dopplers pending -if no improvement by tomorrow, we'll consider lower extremity CT -Continue IV vancomycin, monitor for renal function -Pain control with IV morphine 4 mg every 4 hours as needed -Received 1 L of normal saline, bolus 1 more liter of normal saline -Then continue maintenance normal saline at 130 mL an hour -Repeat CBC and BMP tomorrow The patient is admitted with an anticipated greater than 2 midnight stay as inpatient status for evaluation of sepsis. Surrogate decision-maker: Spouse CODE STATUS: Full code DVT prophylaxis: Lovenox Anticipated discharge date: Pending clinical course Anticipated discharge place: Pending clinical course A total of 55 minutes was spent on the care of this complex patient more than 50% of the time was spent in counseling and care coordination. Past Medical History Past Medical History: No Reported History History of Any Multi-Drug Resistant Organisms: None Reported Past Surgical History: No Surgical Hx Reported Additional Past Surgical History / Comment(s): hernia umbilical x 2 Past Psychological History: No Psychological Hx Reported Smoking Status: Never smoker Past Alcohol Use History: None Reported Past Drug Use History: None Reported Medications and Allergies Home Medications Medication Instructions Recorded Confirmed Type No Known Home Medications 09/26/23 09/26/23 History Allergies Allergy/AdvReac Type Severity Reaction Status Date / Time No Known Allergies Allergy Verified 09/26/23 17:17 Physical Exam Vitals: Vital Signs Temp Pulse Resp BP Pulse Ox 09/26/23 17:03 98.1 F 111 H 16 180/113 97 09/26/23 14:48 125 H 16 118/95 99 09/26/23 13:26 100.4 F H 119 H 20 190/90 100 Intake and Output 09/26/23 09/26/23 09/26/23 06:59 14:59 22:59 Other: Weight 149.685 kg Results CBC & Chem 7: 09/26/23 14:18 09/26/23 14:18 Labs: Abnormal Lab Results - Last 24 Hours (Table) 09/26/23 09/26/23 09/26/23 Range/Units 14:18 14:18 15:23 WBC 22.0 H (3.8-10.6) k/uL Neutrophils # 19.7 H (1.3-7.7) k/uL Carbon Dioxide 19 L (22-30) mmol/L Glucose 141 H (74-99) mg/dL Plasma Lactic Acid Hiram 3.1 H* (0.7-2.0) mmol/L ALT 61 H (4-49) U/L Creatine Kinase (55-170) U/L 09/26/ Range/Units 15:23 WBC (3.8-10.6) k/uL Neutrophils # (1.3-7.7) k/uL Carbon Dioxide (22-30) mmol/L Glucose (74-99) mg/dL Plasma Lactic Acid Hiram (0.7-2.0) mmol/L ALT (4-49) U/L Creatine Kinase 249 H (55-170) U/L
[2023-09-27] MEDS: SODIUM CHLORIDE 0.9% 1,000 ML IV SCH ×2 (02:09→08:53)
[2023-09-27 03:05] LABS: African American GFR (CKD) >90 (>60 ml/min/1.73 sqM); Anion Gap 13 mmol/L; Blood Urea Nitrogen 17 mg/dL (9-20); Calcium 8.7 mg/dL (8.4-10.2); Carbon Dioxide 17 mmol/L (22-30); Chloride 108 mmol/L (98-107); Glucose 178 mg/dL (74-99); Non-African American GFR(CKD) >90 (>60 ml/min/1.73 sqM); Potassium 4.1 mmol/L (3.5-5.1); Sodium 138 mmol/L (137-145)
[2023-09-27 04:17] LABS: Basophils % (A) 0 %; Eosinophils # (A) 0.3 k/uL (0-0.7); Eosinophils % (A) 1 %; HCT 44.4 % (39.0-53.0); HGB 15.1 gm/dL (13.0-17.5); Lymphocytes # (A) 0.7 k/uL (1.0-4.8); Lymphocytes % (A) 3 %; MCH 28.8 pg (25.0-35.0); MCV 84.6 fL (80.0-100.0); Mean Platelet Volume 7.2; Monocytes # (A) 0.6 k/uL (0-1.0); Monocytes % (A) 3 %; Neutrophils # (A) 23.4 k/uL (1.3-7.7); Neutrophils % (A) 93 %; Platelet Count 262 k/uL (150-450); RBC 5.25 m/uL (4.30-5.90); RDW 13.6 % (11.5-15.5); WBC 25.1 k/uL (3.8-10.6)
[2023-09-27] MEDS ORDERED: VANCOMYCIN 2,000 MG in SODIUM CHLORIDE 0.9% 500 ML 500 ML IVPB SCH (05:00)
[2023-09-27] MEDS: MORPHINE SULFATE 4 MG/ML SYRINGE IV PRN ×4 (06:10→21:15)
--- NOTE | 2023-09-27 13:19 | P.PN ---
Subjective Progress Note Date: 09/27/23 Hospital Course: 33-year-old male with history of no significant past smoking history presenting with right leg pain. In the ER, temperature was 100.4, pulse 119, respiratory rate 20, blood pressure 190/90, saturating 100% on room air. WBC 22, bicarb 19, lactate 3.1, creatinine 1.06, glucose 141, ALT 61, CK 249. Lumbar CT did not show any epidural abscess or paraspinal mass. Right tibia and fibula showed no acute fracture or dislocation, periosteal thickening of proximal right fibular diaphysis bilaterally could represent nonacute fracture. Hip x-ray did not show any factors. Patient started on IV vancomycin. Patient admitted for cellulitis and sepsis. Subjective: Patient seen and examined at bedside. No acute events overnight. Claims that his right leg is less tender however erythema is worsening. Pertinent positives and negatives as discussed above, a complete review of systems was performed and all other systems are negative. Vitals Signs Reviewed. General: nontoxic, no distress, appears at stated age Derm: warm, dry right anterior richter erythematous and tender to palpation, worse Head: atraumatic, normocephalic, symmetric Eyes: EOMI, no lid lag, anicteric sclera Mouth: no lip lesion, mucus membranes moist Cardiovascular: S1S2 reg, no murmur Lungs: CTA bilateral, no rhonchi, no rales , no accessory muscle use Abdominal: soft, nontender to palpation, no guarding, no appreciable organomegaly Ext: no gross muscle atrophy, no edema, no contractures Neuro: CN II-XI grossly intact, no focal neuro deficits Psych: Alert, oriented, appropriate affect Data Reviewed Today: Pertinent Labs: WBC 25.1, neutrophilic predominant, bicarb 17, creatinine 0.96, blood sugars 178, lactate 1.5 Imaging: Lower extremity Dopplers did not show any DVT Assessment and Plan: Severe sepsis secondary to lower extremity cellulitis Severe leukocytosis, neutrophilic predominant Lactic acidosis, resolved High anion gap metabolic acidosis, resolved Non-anion gap metabolic acidosis Hypertension, likely from pain -Blood cultures pending -Erythema slightly worsened, CT lower extremity ordered -Continue IV vancomycin, monitor for renal function for toxicity -Pain control with IV morphine 4 mg every 4 hours as needed -Non-anion gap metabolic acidosis likely in the setting of normal saline, discontinue IV fluids, encourage oral intake -Repeat CBC and BMP tomorrow DVT ppx: Lovenox Code status: Full code Anticipated discharge place: Pending clinical course Anticipated discharge time: Pending clinical course Objective - Vital Signs Vital signs: Vital Signs Temp 99.1 F 09/27/23 12:53 Pulse 116 H 09/27/23 13:00 Resp 20 09/27/23 13:00 BP 188/115 09/27/23 13:00 Pulse Ox 98 09/27/23 13:00 FiO2 Intake & Output 09/26/23 09/27/23 09/27/23 18:59 06:59 18:59 Weight 149.685 kg - Labs CBC & Chem 7: 09/27/23 02:31 09/27/23 02:25 Labs: Abnormal Lab Results - Last 24 Hours (Table) 09/26/23 09/26/23 09/26/23 Range/Units 14:18 14:18 15:23 WBC 22.0 H (3.8-10.6) k/uL Neutrophils # 19.7 H (1.3-7.7) k/uL Lymphocytes # (1.0-4.8) k/uL Chloride (98-107) mmol/L Carbon Dioxide 19 L (22-30) mmol/L Glucose 141 H (74-99) mg/dL Plasma Lactic Acid Hiram 3.1 H* (0.7-2.0) mmol/L ALT 61 H (4-49) U/L Creatine Kinase (55-170) U/L 09/26/23 09/26/23 09/26/23 Range/Units 15:23 18:37 23:07 WBC (3.8-10.6) k/uL Neutrophils # (1.3-7.7) k/uL Lymphocytes # (1.0-4.8) k/uL Chloride (98-107) mmol/L Carbon Dioxide (22-30) mmol/L Glucose (74-99) mg/dL Plasma Lactic Acid Hiram 2.4 H* 3.0 H* (0.7-2.0) mmol/L ALT (4-49) U/L Creatine Kinase 249 H (55-170) U/L 09/27/23 09/27/23 09/27/23 Range/Units 02:25 02:31 02:31 WBC 25.1 H (3.8-10.6) k/uL Neutrophils # 23.4 H (1.3-7.7) k/uL Lymphocytes # 0.7 L (1.0-4.8) k/uL Chloride 108 H (98-107) mmol/L Carbon Dioxide 17 L (22-30) mmol/L Glucose 178 H (74-99) mg/dL Plasma Lactic Acid Hiram 2.1 H* (0.7-2.0) mmol/L ALT (4-49) U/L Creatine Kinase (55-170) U/L
[2023-09-27] MEDS ORDERED: hydrALAZINE HCL 25 MG TAB PO STA (13:57)
--- NOTE | 2023-09-27 14:16 | CT ---
EXAMINATION TYPE: CT lower extremity RT wo/w con CT DLP: 636.3 mGycm, Automated exposure control for dose reduction was used. DATE OF EXAM: 09/27/2023 2:03 PM COMPARISON: None CLINICAL INDICATION:Male, 33 years old with history of worsening cellulitis; Worsening Cellulitis TECHNIQUE: Axial images were obtained of the CT lower extremity RT wo/w con, Additional coronal and s agittal reformatted images and soft tissue and bone window were obtained for review. . Contrast used: mL of Isovue 300 without and with IV Contrast, (None if empty) Oral contrast used: (None if empty) FINDINGS: There is no evidence of fracture, subluxation, or dislocation. . There is minimal fat stra nding changes along the leg. No organizing fluid collections. No evidence for significant skin thicke zehra. No osseous erosion. No focal muscular atrophy is identified. No radiopaque foreign body identif ied. IMPRESSION: 1. No evidence of fracture. 2. Soft tissue edema without evidence for osseous erosion to suggest osteomyelitis or organizing flu id collection to suggest abscess.
[2023-09-27] MEDS: VANCOMYCIN 2,500 MG in SODIUM CHLORIDE 0.9% 500 ML 500 ML IVPB SCH (18:04)
[2023-09-27] MEDS: LISINOPRIL-HCTZ 10-12.5 MG 1 EACH TAB PO SCH (18:49)
[2023-09-28] MEDS ORDERED: hydrALAZINE HCL 25 MG TAB PO STA (00:42)
[2023-09-28] MEDS: VANCOMYCIN 2,500 MG in SODIUM CHLORIDE 0.9% 500 ML 500 ML IVPB SCH (05:12)
[2023-09-28] MEDS: MORPHINE SULFATE 4 MG/ML SYRINGE IV PRN ×3 (05:18→19:28)
[2023-09-28] MEDS: ENOXAPARIN 40 MG/0.4 ML SYRINGE SQ SCH (09:17)
[2023-09-28] MEDS: LISINOPRIL-HCTZ 10-12.5 MG 1 EACH TAB PO SCH (09:17)
[2023-09-28 09:27] LABS: Basophils % (A) 0 %; Eosinophils % (A) 0 %; HCT 41.4 % (39.0-53.0); HGB 13.8 gm/dL (13.0-17.5); Lymphocytes # (A) 1.4 k/uL (1.0-4.8); Lymphocytes % (A) 9 %; MCH 28.4 pg (25.0-35.0); MCHC 33.5 g/dL (31.0-37.0); MCV 84.8 fL (80.0-100.0); Mean Platelet Volume 7.9; Monocytes # (A) 0.7 k/uL (0-1.0); Monocytes % (A) 5 %; Neutrophils # (A) 13.2 k/uL (1.3-7.7); Neutrophils % (A) 85 %; Platelet Count 227 k/uL (150-450); RBC 4.88 m/uL (4.30-5.90); RDW 14.1 % (11.5-15.5); WBC 15.6 k/uL (3.8-10.6)
[2023-09-28 09:28] VITALS: RESP 18
[2023-09-28 09:48] LABS: African American GFR (CKD) >90 (>60 ml/min/1.73 sqM); Non-African American GFR(CKD) >90 (>60 ml/min/1.73 sqM)
[2023-09-28 10:29] LABS: African American GFR (CKD) >90 (>60 ml/min/1.73 sqM); Anion Gap 12 mmol/L; Blood Urea Nitrogen 15 mg/dL (9-20); Calcium 8.1 mg/dL (8.4-10.2); Carbon Dioxide 24 mmol/L (22-30); Chloride 100 mmol/L (98-107); Glucose 156 mg/dL (74-99); Non-African American GFR(CKD) >90 (>60 ml/min/1.73 sqM); Potassium 3.4 mmol/L (3.5-5.1); Sodium 136 mmol/L (137-145)
[2023-09-28] MEDS ORDERED: POTASSIUM CHLORIDE ER 20 MEQ TAB.ER PO STA (10:47)
--- NOTE | 2023-09-28 13:48 | P.PN ---
Subjective Progress Note Date: 09/28/23 Hospital Course: 33-year-old male with history of no significant past smoking history presenting with right leg pain. In the ER, temperature was 100.4, pulse 119, respiratory rate 20, blood pressure 190/90, saturating 100% on room air. WBC 22, bicarb 19, lactate 3.1, creatinine 1.06, glucose 141, ALT 61, CK 249. Lumbar CT did not show any epidural abscess or paraspinal mass. Right tibia and fibula showed no acute fracture or dislocation, periosteal thickening of proximal right fibular diaphysis bilaterally could represent nonacute fracture. Hip x-ray did not show any factors. Patient started on IV vancomycin. Patient admitted for cellulitis and sepsis. CT right lower extremity does not show any obvious abscess. IV vancomycin switched to IV cefazolin. Subjective: Patient seen and examined at bedside. No acute events overnight. Right leg tenderness and erythema improving Pertinent positives and negatives as discussed above, a complete review of systems was performed and all other systems are negative. Vitals Signs Reviewed. General: nontoxic, no distress, appears at stated age Derm: warm, dry right anterior richter erythematous and tender to palpation, worse Head: atraumatic, normocephalic, symmetric Eyes: EOMI, no lid lag, anicteric sclera Mouth: no lip lesion, mucus membranes moist Cardiovascular: S1S2 reg, no murmur Lungs: CTA bilateral, no rhonchi, no rales , no accessory muscle use Abdominal: soft, nontender to palpation, no guarding, no appreciable organomegaly Ext: no gross muscle atrophy, no edema, no contractures Neuro: CN II-XI grossly intact, no focal neuro deficits Psych: Alert, oriented, appropriate affect Data Reviewed Today: Pertinent Labs: WBC 15.6, potassium 3.4, creatinine 0.97 Imaging: CT right lower extremity did not show any abscess, only soft tissue edema Assessment and Plan: Severe sepsis secondary to lower extremity cellulitis, resolving Severe leukocytosis, neutrophilic predominant, resolving Lactic acidosis, resolved High anion gap metabolic acidosis, resolved Non-anion gap metabolic acidosis, resolved Hypertensive urgency Hypokalemia -Blood cultures no growth to date -Erythema slightly improved -Discontinue IV vancomycin, started on cefazolin IV 2 g every 8 hours -Pain control with IV morphine 4 mg every 4 hours as needed -Given 20 mEq potassium oral -Started on lisinopril hydrochlorothiazide 10-12.5 mg daily -Repeat BMP tomorrow DVT ppx: Lovenox Code status: Full code Anticipated discharge place: Pending clinical course Anticipated discharge time: Pending clinical course Objective - Vital Signs Vital signs: Vital Signs Temp 98.3 F 09/28/23 09:09 Pulse 118 H 09/28/23 11:40 Resp 18 09/28/23 12:20 BP 161/120 09/28/23 12:20 Pulse Ox 96 09/28/23 09:09 FiO2 Intake & Output 09/27/23 09/28/23 09/28/23 18:59 06:59 18:59 Intake Total 540 720 Balance 540 720 Weight 149.685 kg Intake: Oral 540 720 Other: Voiding Method Toilet Toilet # Voids 1 2 - Labs CBC & Chem 7: 09/28/23 08:12 09/28/23 08:12 Labs: Abnormal Lab Results - Last 24 Hours (Table) 09/28/23 09/28/23 Range/Units 08:12 08:12 WBC 15.6 H (3.8-10.6) k/uL Neutrophils # 13.2 H (1.3-7.7) k/uL Sodium 136 L (137-145) mmol/L Potassium 3.4 L (3.5-5.1) mmol/L Glucose 156 H (74-99) mg/dL Calcium 8.1 L (8.4-10.2) mg/dL Microbiology - Last 24 Hours (Table) 09/26/23 15:26 Blood Culture - Preliminary Blood 09/26/23 15:40 Blood Culture - Preliminary Blood
[2023-09-28 19:59] VITALS: TEMP 98.1
[2023-09-29] MEDS: MORPHINE SULFATE 4 MG/ML SYRINGE IV PRN (02:34)
[2023-09-29] MEDS ORDERED: VANCOMYCIN TROUGH DUE 1 EACH MISC MISCELLANE ONE (04:00)
[2023-09-29 05:25] LABS: Basophils % (A) 0 %; Eosinophils # (A) 0.1 k/uL (0-0.7); Eosinophils % (A) 1 %; HCT 43.4 % (39.0-53.0); HGB 15.1 gm/dL (13.0-17.5); Lymphocytes # (A) 1.7 k/uL (1.0-4.8); Lymphocytes % (A) 17 %; MCH 29.4 pg (25.0-35.0); MCHC 34.8 g/dL (31.0-37.0); MCV 84.4 fL (80.0-100.0); Mean Platelet Volume 7.5; Monocytes # (A) 0.6 k/uL (0-1.0); Monocytes % (A) 6 %; Neutrophils # (A) 7.8 k/uL (1.3-7.7); Neutrophils % (A) 75 %; Platelet Count 247 k/uL (150-450); RBC 5.14 m/uL (4.30-5.90); RDW 13.5 % (11.5-15.5); WBC 10.4 k/uL (3.8-10.6)
[2023-09-29 05:38] LABS: African American GFR (CKD) >90 (>60 ml/min/1.73 sqM); Anion Gap 13 mmol/L; Blood Urea Nitrogen 17 mg/dL (9-20); Calcium 8.7 mg/dL (8.4-10.2); Carbon Dioxide 25 mmol/L (22-30); Chloride 99 mmol/L (98-107); Glucose 125 mg/dL (74-99); Magnesium 2.2 mg/dL (1.6-2.3); Non-African American GFR(CKD) >90 (>60 ml/min/1.73 sqM); Potassium 3.7 mmol/L (3.5-5.1); Sodium 137 mmol/L (137-145)
[2023-09-29] MEDS: LISINOPRIL-HCTZ 10-12.5 MG 1 EACH TAB PO SCH (09:25)
[2023-09-29] MEDS: ENOXAPARIN 40 MG/0.4 ML SYRINGE SQ SCH (09:26)
[2023-09-29 09:29] VITALS: BP 189/124; PULSE 103
--- NOTE | 2023-09-29 12:19 | P.PN ---
Subjective Progress Note Date: 09/29/23 Discharge Diagnosis: Severe sepsis secondary to lower extremity cellulitis Severe leukocytosis, neutrophilic predominant Metabolic acidosis Hypertensive urgency Hypokalemia Hospital Course: 33-year-old male with history of no significant past smoking history presenting with right leg pain. In the ER, temperature was 100.4, pulse 119, respiratory rate 20, blood pressure 190/90, saturating 100% on room air. WBC 22, bicarb 19, lactate 3.1, creatinine 1.06, glucose 141, ALT 61, CK 249. Lumbar CT did not show any epidural abscess or paraspinal mass. Right tibia and fibula showed no acute fracture or dislocation, periosteal thickening of proximal right fibular diaphysis bilaterally could represent nonacute fracture. Hip x-ray did not show any factors. Patient started on IV vancomycin. Patient admitted for cellulitis and sepsis. CT right lower extremity does not show any obvious abscess. IV vancomycin switched to IV cefazolin. Cellulitis improving. improved. Patient being discharge on oral Keflex. Also being discharged on antihypertensives, will need follow-up with PCP. Patient seen and examined at bedside. Vital signs reviewed and stable. General: nontoxic, no distress, appears at stated age, morbidly obese Derm: warm, dry, right anterior skin reduced erythema, no edema Head: atraumatic, normocephalic, symmetric Eyes: EOMI, no lid lag, anicteric sclera Mouth: no lip lesion, mucus membranes moist Cardiovascular: S1S2 reg, no murmur Lungs: CTA bilateral, no rhonchi, no rales , no accessory muscle use Abdominal: soft, nontender to palpation, no guarding, no appreciable organomegaly Ext: no gross muscle atrophy, no edema, no contractures Neuro: CN II-XI grossly intact, no focal neuro deficits Psych: Alert, oriented, appropriate affect A total of 36 minutes of time were spent preparing this complex discharge summary. Patient was discharged on 09/29/23 at 10:10. Objective - Vital Signs Vital signs: Vital Signs Temp 98.1 F 09/29/23 09:20 Pulse 103 H 09/29/23 10:02 Resp 18 09/29/23 10:02 BP 189/124 09/29/23 09:20 Pulse Ox 98 09/29/23 09:20 FiO2 Intake & Output 09/28/23 09/29/23 09/29/23 18:59 06:59 18:59 Intake Total 1080 590 240 Balance 1080 590 240 Intake: Intake, IV Titration 50 Amount ceFAZolin 2 gm In Sodium 50 Chloride 0.9% 50 ml @ 100 mls/hr IVPB Q8HR COUNT INCLUDES THE [facility] Rx# :[id number] Oral 1080 540 240 Other: Voiding Method Toilet Toilet Toilet # Voids 2 1 - Labs CBC & Chem 7: 09/29/23 05:06 09/29/23 05:06 Labs: Abnormal Lab Results - Last 24 Hours (Table) 09/29/23 09/29/23 Range/Units 05:06 05:06 Neutrophils # 7.8 H (1.3-7.7) k/uL Glucose 125 H (74-99) mg/dL Microbiology - Last 24 Hours (Table) 09/26/23 15:26 Blood Culture - Preliminary Blood 09/26/23 15:40 Blood Culture - Preliminary Blood
== END 2023-09-29 12:30 | disposition home or self-care (01) | DRG 872 ==
LOC: EC 13:23 → 5NMEDONC 16:30 → 3SCARD 09-27 15:21
PROVIDERS: ADMIT Student in an Organized Health Care Education/Training Program; ATTEND Student in an Organized Health Care Education/Training Program
DX: A41.9 Sepsis, unspecified organism (principal); E87.20 Acidosis, unspecified; L03.115 Cellulitis of right lower limb; Z68.41 Body mass index [BMI] 40.0-44.9, adult; E66.01 Morbid (severe) obesity due to excess calories; I16.0 Hypertensive urgency; R65.20 Severe sepsis without septic shock; Z28.310 Unvaccinated for COVID-19; E87.6 Hypokalemia; I10 Essential (primary) hypertension; M25.551 Pain in right hip
CPT/HCPCS: 36415; 72132; 73521; 80048; 80053; 80202; 81003; 82550; 82565; 83605; 83735; 85025; 87040; 96361; 96365; 96366; 96372; 96375; 96376; 99285